=== PATIENT | female | born 1950 | race Caucasian/White ===

== ENCOUNTER → 2018-01-02 | Outpatient (CLI) | payer OTHER ==
[~2018-01-02] MED LIST: FERROUS PO; GADOBENATE DIMEGLUMINE 20 ML IV ONE; GLIP5TAB11 PO; LACT1CAP72 PO; LOSA25TA21 PO; METF10004 PO; MULT-1250 PO; PANT40TA25 PO; SITA100T12 PO; TEMA15CA PO; TRAM50TA4 PO; VIT C PO
== END | disposition home or self-care (01) ==
LOC: RAH 11:00
PROVIDERS: ATTEND Otolaryngology Plastic Surgery within the Head & Neck
DX: G31.9 Degenerative disease of nervous system, unspecified (principal); J32.4 Chronic pansinusitis
CPT/HCPCS: 70553; A9577

== ENCOUNTER → 2018-01-10 | Outpatient (CLI) | payer OTHER ==
[~2018-01-10] MED LIST changes: -GADOBENATE DIMEGLUMINE 20 ML IV ONE
== END ==
LOC: RAH 07:36
PROVIDERS: ATTEND Internal Medicine Gastroenterology
DX: N28.9 Disorder of kidney and ureter, unspecified (principal); K74.60 Unspecified cirrhosis of liver; Z90.49 Acquired absence of other specified parts of digestive tract
CPT/HCPCS: 76700

== ENCOUNTER 2018-01-16 06:26 | Day surgery (SDC) | payer OTHER ==
[~2018-01-16] VITALS: Ht 162.6 cm; Wt 64.4 kg
[~2018-01-16 06:26] MED LIST changes: -FERROUS PO; -PANT40TA25 PO
[2018-01-16] MEDS ORDERED: SODIUM CHLORIDE 0.9% 1000ML 1,000 ML IV ONE (06:46)
[2018-01-16 06:53] VITALS: BP 116/61
[2018-01-16 07:49] VITALS: BP 93/48
== END 2018-01-16 08:25 ==
LOC: ENDO 06:26 → DAH 06:26 → ENDO 08:25
PROVIDERS: ATTEND Internal Medicine Gastroenterology
DX: K29.70 Gastritis, unspecified, without bleeding (principal); Z87.19 Personal history of other diseases of the digestive system; Z79.899 Other long term (current) drug therapy; K21.9 Gastro-esophageal reflux disease without esophagitis; Z86.010 Personal history of colon polyps; I10 Essential (primary) hypertension; E78.4 Other hyperlipidemia; E11.9 Type 2 diabetes mellitus without complications; Z79.84 Long term (current) use of oral hypoglycemic drugs; M19.90 Unspecified osteoarthritis, unspecified site; F32.89 Other specified depressive episodes; Z90.49 Acquired absence of other specified parts of digestive tract; K74.69 Other cirrhosis of liver; G31.89 Other specified degenerative diseases of nervous system; J32.4 Chronic pansinusitis
CPT/HCPCS: 43235; 82948; 93005; A4606; J7030

== ENCOUNTER 2019-05-27 15:56 | Emergency (ER) | payer OTHER ==
[~2019-05-27 15:56] MED LIST changes: -LOSA25TA21 PO; +LOSA25TA41 PO; +METF-446 PO; -METF10004 PO
[2019-05-27 16:42] LABS: BASOPHILS % (AUTO) 0.5 % (0.0-5.0); EOSINOPHILS % (AUTO) 2.5 % (0.0-8.0); HEMATOCRIT 34.6 % (36-48); LYMPHOCYTES % (AUTO) 18.7 % (21.0-51.0); MEAN CORPUSCULAR HGB CONC 32.9 g/dL (32.0-36.0); MEAN CORPUSCULAR VOLUME 91.1 fL (79-99); MONOCYTES % (AUTO) 8.8 % (3.0-13.0); NEUTROPHILS % (AUTO) 69.5 % (40.0-77.0); NUCLEATED RED BLOOD CELLS 0.1 % (0.0-0.19); PLATELET COUNT (AUTO) 218 K/uL (130-400); RED CELL DISTRIBUTION WIDTH 14.7 % (11.0-15.5); WHITE BLOOD COUNT (AUTO) 5.3 K/uL (4.8-10.8)
[2019-05-27 17:09] LABS: INR 1.09 (0.85-1.15); PROTHROMBIN TIME 11.4 SEC (9.6-11.6)
== END 2019-05-27 19:07 | disposition home or self-care (01) ==
LOC: EDH 15:56
DX: R60.0 Localized edema (principal); E11.9 Type 2 diabetes mellitus without complications; I10 Essential (primary) hypertension; Z90.89 Acquired absence of other organs; Z90.710 Acquired absence of both cervix and uterus; Z90.49 Acquired absence of other specified parts of digestive tract; Z98.890 Other specified postprocedural states; Z88.5 Allergy status to narcotic agent
CPT/HCPCS: 36415; 85025; 85610; 85730; 93971